=== PATIENT | female | born 1975 | race African-American/Black ===

== ENCOUNTER 2022-08-19 16:02 | Emergency (ER) | payer MEDICAID ==
[~2022-08-19] VITALS: Ht 157.5 cm; Wt 65.0 kg
[2022-08-19 16:07] VITALS: BP 125/74
== END 2022-08-19 18:58 | disposition left against medical advice (07) ==
LOC: ER 16:02
DX: Z53.21 Procedure and treatment not carried out due to patient leaving prior to being seen by health care provider (principal); F41.9 Anxiety disorder, unspecified; K21.9 Gastro-esophageal reflux disease without esophagitis
CPT/HCPCS: 93005